=== PATIENT | male | born 1955 | race Caucasian/White ===

== ENCOUNTER 2017-06-10 13:02 | Emergency (ER) | payer MEDICARE ==
[~2017-06-10] VITALS: Ht 170.2 cm; Wt 59.9 kg
[2017-06-10 13:08] VITALS: BP_SYST 118
--- NOTE | 2017-06-10 13:14 | NUR ---
Patient to ER bed 04 to gown for evaluation. Side rails up.
--- NOTE | 2017-06-10 13:14 | NUR ---
Note undone in EDM - 06/10/17 at 1936 by DAMIEN Pt report received from MONSERRAT Quiles. Daughter present and states that she heard her father vomiting, then went to check on him. Daughter also states that upon standing, pt became faint, and she caught him before he fell. -LOC, no injuries or trauma. Pt also c/o flu-like symptoms over the past week with coughing and yellow phlegm. Pt AAOX4, even and non-labored respirations, BBS clear.
--- NOTE | 2017-06-10 13:15 | NUR ---
Note undone in EDM - 06/10/17 at 1926 by DAMIEN # 20 gauge angiocath placed to LAC. Use of asceptic technique. Opsite placed over site. Blood return noted. Blood for lab drawn from site. Flushed with 10 cc of normal saline. No evidence of infiltration noted. Patient tolerated well.
--- NOTE | 2017-06-10 13:24 | NUR ---
Pt report received from MONSERRAT Yang. Daughter present and states that she heard her father vomiting, then went to check on him. Daughter also states that upon standing, pt became faint, and she caught him before he fell. -LOC, no injuries or trauma. Pt also c/o flu-like symptoms over the past week with coughing and yellow phlegm. Pt AAOX4, even and non-labored respirations, BBS clear.
--- NOTE | 2017-06-10 13:24 | NUR ---
Report given to
[2017-06-10] MEDS ORDERED: NS 500 ML IV ONE (13:30)
[2017-06-10] MEDS ORDERED: ONDANSETRON HCL 4 MG/2 ML VIAL IVP ONE (13:30)
--- NOTE | 2017-06-10 13:45 | NUR ---
# 20 gauge angiocath placed to LAC. Use of asceptic technique. Opsite placed over site. Blood return noted. Blood for lab drawn from site. Flushed with 10 cc of normal saline. No evidence of infiltration noted. Patient tolerated well.
[2017-06-10 13:50] LABS: EOSINOPHILS # (AUTO) 0.1 K/uL (0.0-0.4); LYMPHOCYTES # (AUTO) 0.4 K/uL (1.0-5.5); MEAN CORPUSCULAR VOLUME 88 fL (79.0-98.0); WHITE BLOOD COUNT (AUTO) 5.2 K/uL (4.8-10.8)
[2017-06-10 13:53] LABS: BASOPHILS # (AUTO) 0.1 K/uL (0.0-0.2); BASOPHILS % (AUTO) 2.5 % (0.0-2.0); HEMATOCRIT 44.8 % (36-54); HEMOGLOBIN 14.8 g/dL (14.0-18.0); LYMPHOCYTES % (AUTO) 6.8 % (20.5-51.5); MEAN CORPUSCULAR HEMOGLOBIN 29 pg (27-31); MEAN CORPUSCULAR HGB CONC 33 % (32-36); MONOCYTES # (AUTO) 0.5 K/uL (0.0-1.0); MONOCYTES % (AUTO) 10.1 % (1.7-9.3); NEUTROPHILS # (AUTO) 4.1 K/uL (1.8-7.7); NEUTROPHILS % (AUTO) 79.6 % (40.0-70.0); PLATELET COUNT (AUTO) 195 K/uL (130-430); RED BLOOD CELL COUNT(AUTO) 5.12 MIL/uL (4.2-6.2); RED CELL DISTRIBUTION WIDTH 13.4 % (9.0-15.0)
--- NOTE | 2017-06-10 14:00 | NUR ---
Dr. Goode at bedside to assess pt.
[2017-06-10 14:09] LABS: ANION GAP 5 (5-15); CHLORIDE 102 mmol/L (98-107); GLUCOSE 107 mg/dL (70-99); POTASSIUM 3.8 mmol/L (3.5-5.1); SODIUM SERUM 135 mmol/L (136-145)
[2017-06-10 14:10] LABS: ALANINE AMINOTRANSFERASE 28 U/L (12-78); ASPARTATE AMINOTRANSFERASE 26 U/L (10-37); CALCIUM 8.8 mg/dL (8.4-11.0); CREATININE 0.81 mg/dL (0.55-1.30); GFR AFRICAN AMERICAN 124 mL/min (>90); TOTAL BILIRUBIN 0.4 mg/dL (0.0-1.0); UREA NITROGEN, BLOOD 15 mg/dL (8-21)
[2017-06-10 14:11] LABS: ALBUMIN 3.6 g/dL (3.4-4.8); LIPASE 232 U/L (73-393)
[2017-06-10 14:22] LABS: BILIRUBIN,URINE NEGATIVE (NEGATIVE); BLOOD, URINE NEGATIVE (NEGATIVE); CLARITY/URINE CLEAR (CLEAR); COLOR,URINE YELLOW (YELLOW); GLUCOSE,URINE NEGATIVE (NEGATIVE); KETONES,URINE NEGATIVE (NEGATIVE); LEUKOCYTE ESTERASE ,URINE NEGATIVE (NEGATIVE); NITRITE, URINE NEGATIVE (NEGATIVE); PH,URINE 6.5 (5.0-8.0); PROTEIN URINE NEGATIVE (NEGATIVE); UROBILINOGEN,URINE 0.2 (0.2-1.0)
[2017-06-10] MEDS ORDERED: KETOROLAC TROMETHAMINE 30 MG VIAL IVP ONE (15:00)
--- NOTE | 2017-06-10 16:15 | NUR ---
Pt ambulates without difficulty, passes road test. Placed back on desk monitor, awaiting lab results.
[2017-06-10 17:30] VITALS: BP_SYST 126
--- NOTE | 2017-06-10 17:30 | NUR ---
Patient given written and verbal discharge instructions and verbalizes understanding. ER MD discussed with patient the results and treatment provided. Patient in stable condition. ID arm band removed. IV catheter removed intact and dressing applied, no active bleeding. Rx of Zofran, Tamiflu, and Promethizine DM given. Patient educated on pain management and to follow up with PMD. Pain Scale 0/10. Opportunity for questions provided and answered.
== END 2017-06-10 17:30 | disposition home or self-care (01) ==
LOC: SED 13:02
DX: E86.0 Dehydration (principal); J11.1 Influenza due to unidentified influenza virus with other respiratory manifestations; R55 Syncope and collapse; Z88.5 Allergy status to narcotic agent
CPT/HCPCS: 36415; 71045; 80053; 81003; 83690; 84484; 85025; 86710; 93005; 96361; 96374; 96375; 99285; J1885; J2405; J7040